=== PATIENT | female | born 1975 | race Caucasian/White ===

== ENCOUNTER 2017-04-27 17:01 | Emergency (ER) | payer MEDICARE, OTHER ==
[~2017-04-27 17:01] MED LIST: ALBUTEROL MININEB NEB; ALBUTEROL17 GM INH; ALBUTEROL17 GM NEB; BACTRIM DS TABL1 TA1 PO; BIRTH CONTROL PILL PO; CERTAGEN PO; CYMBALTA PO; DOXEPIN; DOXEPIN HCL50 MG PO; FLEXERIL; FLEXERIL10 M1 PO; FLONASE16 GM; GEODAN PO; HYDROCODON-ACE1 EAC9 PO; HYDROCODONE/APA1 T16 PO; K-DUR20 ME1 PO; LASIX; LASIX PO; LISINOPRIL PO; LO/OVRAL-281 TAB PO; LORTAB 10-5001 EACH; MICRO-K PO; MICROGESTIN1 TA1 PO; MILLIPRED5 MG; MUCINEX DM1 TAB.SR . PO; MUCINEX1200 MG/BO; NAPROSYN500 MG PO; NASONEX17 GM; NEURONTIN600 MG PO; NEURONTIN800 MG; PEPCID40 MG PO; PORTLAND PHARMACY; POTASSIUM; POTASSIUM99 M2; PREDNISONE50 MG PO; PRILOSEC; PROVENTIL5 MG/ML; PYRIDIUM PO; SINGULAIR; TESSALON200 MG PO; TOPAMAX; TOPAMAX25 MG PO; ZYRTEC; ZYRTEC PO; ZYRTEC10 M1 PO
[2017-04-27] MEDS ORDERED: PERCOCET (17:09)
[2017-04-27] MEDS ORDERED: ZANAFLEX2 MG (17:09)
[2017-04-27 17:54] LABS: BASOPHIL# 0.1 X10e3 (0-0.3); BASOPHIL% 0.9 % (0-2.5); EOSINOPHIL# 0.1 X10e3 (0-0.7); EOSINOPHIL% 1.7 % (0.0-7.0); HEMATOCRIT 39.3 % (35.0-45.0); HEMOGLOBIN 12.8 gm/dL (12.0-16.0); LYMPHOCYTE# 2.2 X10e3 (1.0-3.5); LYMPHOCYTE% 36.8 % (17.0-45.0); MEAN CELL VOLUME 76.7 FL (83-96); MEAN CORPUSCULAR HGB CONC 32.6 g/dL (30-36); MEAN PLATELET VOLUME 9.6 FL (6.5-11.5); MONOCYTE# 0.4 X10e3 (0-1.0); NEUTROPHIL# 3.3 X10e3 (1.5-7.1); NEUTROPHIL% 53.6 % (40-75); PLATELET COUNT 176 X10e3 (140-420); RED BLOOD COUNT 5.12 X10e (3.90-5.30); RED CELL DISTRIBUTION WIDTH 15.7 % (11.0-15.5); WHITE BLOOD COUNT 6.1 X10e3 (4.0-10.5)
[2017-04-27 17:55] LABS: DIFF IND NO
[2017-04-27 18:15] LABS: ALBUMIN SERUM 3.7 g/dL (3.5-5.0); BILIRUBIN, DIRECT 0.1 mg/dL (0.0-0.2); BILIRUBIN,INDIRECT 0.3 mg/dL (0.0-0.9); BILIRUBIN,TOTAL 0.4 mg/dL (0.2-2.0); BUN/CREATININE RATIO 13.75; CALCIUM SERUM 9.1 mg/dL (8.4-10.2); CREATININE SERUM 0.8 mg/dL (0.6-1.4); GLOM FILT RATE Estimated 92.3 mL/min (>60); POTASSIUM 4.2 mmol/L (3.5-5.1); PROTEIN TOTAL SERUM 7.4 g/dL (6.0-8.3)
[2017-04-27 18:32] LABS: URINE SOURCE CLEAN CATCH
[2017-04-27 18:36] LABS: URINE APPEARANCE CLEAR; URINE BLOOD NEG (NEG); URINE COLOR YELLOW; URINE GLUCOSE NEG (NORM); URINE KETONE NEG (NEG); URINE LEUKOCYTE ESTERASE NEG (NEG); URINE NITRATE NEG (NEG); URINE PROTEIN TRACE (NEG); URINE SPECIFIC GRAVITY 1.025 (1.003-1.035)
[2017-04-27 18:42] LABS: MICRO INDICATED? YES; URINE BILIRUBIN NEG (NEG)
[2017-04-27 18:43] LABS: CULTURE INDICATED? NO; URINE BACTERIA NEG (NEG); URINE MUCUS PRESENT; URINE RBC 0-2 /[HPF] (0-2); URINE SQUAMOUS EPITHELIAL CELL MANY /[HPF]
== END 2017-04-27 20:00 | disposition home or self-care (01) ==
LOC: SED 17:01
PROVIDERS: Physician Assistant Medical
DX: R10.9 Unspecified abdominal pain (principal); G89.29 Other chronic pain; G62.9 Polyneuropathy, unspecified; Z95.1 Presence of aortocoronary bypass graft; Z88.8 Allergy status to other drugs, medicaments and biological substances
CPT/HCPCS: 36415; 80048; 80076; 81003; 82150; 83690; 84703; 85025; 96361; 96374; 99284; J1885; J2405

== ENCOUNTER 2017-05-28 21:02 | Emergency (ER) | payer OTHER ==
[~2017-05-28] VITALS: Ht 160 cm; Wt 181.4 kg
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
[~2017-05-28 21:02] MED LIST changes: +PERCOCET; +ZANAFLEX2 MG
[2017-05-28] MEDS ORDERED: TRAZODONE PO (21:37)
== END 2017-05-29 02:00 | disposition home or self-care (01) ==
LOC: SED 21:02
DX: M79.1 Myalgia (principal); V49.00XA Driver injured in collision with unspecified motor vehicles in nontraffic accident, initial encounter; M54.9 Dorsalgia, unspecified; Y92.410 Unspecified street and highway as the place of occurrence of the external cause; Z88.8 Allergy status to other drugs, medicaments and biological substances
CPT/HCPCS: 70450; 72072; 72100; 72125; 96372; 99284; J1170